=== PATIENT | female | born 1975 | race Caucasian/White ===

== ENCOUNTER 2024-10-13 09:42 | Outpatient (REF) | payer OTHER, SELFPAY ==
--- OUTSIDE RECORDS SUMMARY | 2024-10-13 10:32 | XMS_ITS | Data Portability ---
Author Organization [facility] Address [address] [place] [address] Assessment Encounter Date Assessment Date Assessment LastModified by Organization Details LastModified Time 07/01/2021 07/01/2021 [id number] [place] [id number] (SALES DIRECTOR) MDM MODERATE MUST MEET 2 OUT OF 3 ELEMENTS: PROBLEMS, DATA OR RISK ELEMENT 1: PROBLEMS ADDRESSED 1 OR MORE CHRONIC ILLNESS WITH EXACERBATION OR 2 OR MORE STABLE CHRONIC ILLNESSES OR 1 UNDIAGNOSED NEW PROBLEM OR 1 ACUTE ILLNESS W/SYMPTOMS OR 1 ACUTE COMPLICATED INJURY ELEMENT 2: DATA MUST MEET 1 OF 3 CATEGORIES CATEGORY 1: REVIEW OF PRIOR EXTERNAL NOTES, REVIEW OF RESULTS, ORDERING OF EACH TEST, ASSESSMENT REQUIRING INDEPENDENT HISTORIAN OR CATEGORY 2: INDEPENDENT INTERPRETATION OF TESTS BY ANOTHER PHYSICIAN OR SPECIALIST OR CATEGORY 3: DISCUSSION OF MGT OR TEST INTERPRETATION W/EXTERNAL PHYSICIAN OR SPECIALIST ELEMENT 3: RISK RISK OF COMPLICATIONS AND/OR MORBIDITY OR MORTALITY OF PATIENT MANAGEMENT PROVIDER MUST THOROUGHLY DOCUMENT EACH ELEMENT THAT IS COVERED Not available 07/01/2021 14:37:28 11/15/2023 11/15/2023 [id number] [place] [id number] (SALES DIRECTOR) MDM MODERATE MUST MEET 2 OUT OF 3 ELEMENTS: PROBLEMS, DATA OR RISK ELEMENT 1: PROBLEMS ADDRESSED 1 OR MORE CHRONIC ILLNESS WITH EXACERBATION OR 2 OR MORE STABLE CHRONIC ILLNESSES OR 1 UNDIAGNOSED NEW PROBLEM OR 1 ACUTE ILLNESS W/SYMPTOMS OR 1 ACUTE COMPLICATED INJURY ELEMENT 2: DATA MUST MEET 1 OF 3 CATEGORIES CATEGORY 1: REVIEW OF PRIOR EXTERNAL NOTES, REVIEW OF RESULTS, ORDERING OF EACH TEST, ASSESSMENT REQUIRING INDEPENDENT HISTORIAN OR CATEGORY 2: INDEPENDENT INTERPRETATION OF TESTS BY ANOTHER PHYSICIAN OR SPECIALIST OR CATEGORY 3: DISCUSSION OF MGT OR TEST INTERPRETATION W/EXTERNAL PHYSICIAN OR SPECIALIST ELEMENT 3: RISK RISK OF COMPLICATIONS AND/OR MORBIDITY OR MORTALITY OF PATIENT MANAGEMENT PROVIDER MUST THOROUGHLY DOCUMENT EACH ELEMENT THAT IS COVERED Not available 11/15/2023 12:13:12 08/09/2024 08/09/2024 [id number] [place] [id number] (SALES DIRECTOR) MDM MODERATE MUST MEET 2 OUT OF 3 ELEMENTS: PROBLEMS, DATA OR RISK ELEMENT 1: PROBLEMS ADDRESSED 1 OR MORE CHRONIC ILLNESS WITH EXACERBATION OR 2 OR MORE STABLE CHRONIC ILLNESSES OR 1 UNDIAGNOSED NEW PROBLEM OR 1 ACUTE ILLNESS W/SYMPTOMS OR 1 ACUTE COMPLICATED INJURY ELEMENT 2: DATA MUST MEET 1 OF 3 CATEGORIES CATEGORY 1: REVIEW OF PRIOR EXTERNAL NOTES, REVIEW OF RESULTS, ORDERING OF EACH TEST, ASSESSMENT REQUIRING INDEPENDENT HISTORIAN OR CATEGORY 2: INDEPENDENT INTERPRETATION OF TESTS BY ANOTHER PHYSICIAN OR SPECIALIST OR CATEGORY 3: DISCUSSION OF MGT OR TEST INTERPRETATION W/EXTERNAL PHYSICIAN OR SPECIALIST ELEMENT 3: RISK RISK OF COMPLICATIONS AND/OR MORBIDITY OR MORTALITY OF PATIENT MANAGEMENT PROVIDER MUST THOROUGHLY DOCUMENT EACH ELEMENT THAT IS COVERED Not available 08/09/2024 12:03:18 Plan of Treatment Reminders Order Date Submit Date Provider Last Modified By Organization Details Last Modified Time Details Appointments None recorded. Lab lipid panel, blood 2024 025 [facility], [address] [place] [address], [address], 5 12:11:24 CBC 2024 025 [facility], [address] [place] [address], [address], 5 12:11:23 CMP, serum or plasma 2024 025 [facility], [address] [place] [address], [address], 5 12:11:23 vitamin D, 25-hydroxy , total, serum 2024 025 [facility], [address] [place] [address], [address], 5 12:11:24 CMP, serum or plasma 2022 023 [facility] (Centralized Electronic Ordering - All Locations), Patient Can Go To The Location Of Their Choice, [address] 3 10:35:25 CBC w/ auto diff 2022 023 [email or web address] [facility] (Centralized Electronic Ordering - All Locations), Patient Can Go To The Location Of Their Choice, [address] 3 10:31:16 lipid panel, blood 2022 023 [facility] (Centralized Electronic Ordering - All Locations), Patient Can Go To The Location Of Their Choice, [address] 3 10:35:25 hemoglobin A1c, QN, blood 2022 023 [facility] (Centralized Electronic Ordering - All Locations), Patient Can Go To The Location Of Their Choice, [address] 3 10:35:25 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 Surgeries None recorded. Imaging XR, lumbosacra l spine, 2 or 3 view 2023 024 [facility], [address] [place], [address], 4 15:44:54 MAMMO, diagnostic , digital, unilateral - upper inner quadrant, 12 oclock left breast, notable lump 2021 022 [email or web address] 10 [facility], [address] [place], [address], 2 08:37:59 Medication Orders desonide 0.05 % topical cream 2024 025 [facility] #35453, [address] [place] [address], [id number], 5 12:02:39 cephalexin 500 mg capsule 2024 025 [facility], [address] [place], [place], [id number], 5 12:02:38 diclofenac sodium 75 mg tablet,del ayed release 2023 025 SHERRY Not available 5 11:57:14 prednisone 20 mg tablet 2022 023 [email or web address]74482, [address] [place], [place], [id number], 4 11:48:58 tizanidine 4 mg tablet [address] [facility]58, [address] [place], [place], [id number], 4 11:49:03 omeprazole 40 mg capsule,de layed release 2022 023 [facility], [place], [address], 3 10:29:34 losartan 50 mg tablet 2022 023 Pharmacy[facility], [place], [address], 5 11:53:45 ibuprofen 800 mg tablet 2022 023 [facility], [place], [address], 3 10:29:33 omeprazole 40 mg capsule,de layed release 2021 022 [facility] #55052, [address] [place], [place], [id number], 2 14:38:32 losartan 50 mg tablet 2021 022 [facility] #71875, [address] [place], [place], [id number], 5 11:53:45 bupropion HCl SR 150 mg tablet,12 hr sustained- release 2021 022 [facility] #46668, [address] [place], [place], [id number], 4 12:13:17 Patient TargetsNo targets recorded. Patient Instructions Encounter Date Encounter Id Patient Instructions Last Modified By Organization Details Last Modified Time 07/01/2021 [id number] controlling your asthma: care instructions Not available 07/01/2021 14:38:20 learning about asthma Not available 07/01/2021 14:38:19 gastroesophageal reflux disease (GERD): care instructions Not available 07/01/2021 14:38:19 high blood press ure: care instructions Not available 07/01/2021 14:38:19 learning about h igh blood pressure Not available 07/01/2021 14:38:19 insulin resistan ce: care instructions Not available 07/01/2021 14:38:20 learning about m ood disorders Not available 07/01/2021 14:38:19 03/05/2023 [id number] pulse oximetry* rtryba Not available 03/05/2023 10:29:29 11/15/2023 [id number] pulse oximetry* Not available 11/15/2023 12:15:24 controlling your asthma: care instructions Not available 11/15/2023 12:15:21 learning about asthma Not available 11/15/2023 12:15:21 Reason for Referral Teaching Young Referral for Mort on neuroma of bilateral feet bilateral phillips's neuroma Referring Physician: Marilynn Alonso, Internal Medicine, Encounter Date: 11/12/2021 Results Created Date Observation Date Name Description Value Unit Range Abnormal Flag Note LastModifiedBy Organization Detail LastModifiedTime 03/05/20 23 03/05/2023 pulse oxime try* Result 97 Not Available [facility] [address] [facility] [address], [place], [address], 03/02/2023 16:46:02 11/15/19 24 11/15/2023 pulse oxime try* Result 99 Not Available [facility] [address] [facility] [address], [place], [address], 11/12/2023 15:38:49 12/09/19 22 12/08/2021 US, breas t No observ ation record ed. [facility] [address], [place], [address], 12/08/2021 16:17:41 12/09/19 22 12/08/2021 US, duglasas t No observ ation record ed. [facility] [address], [place], [address], 12/08/2021 16:17:55 02/27/20 23 02/26/2023 imagi ng/di andreaos carlos resul t No observ ation record ed. [email or web address] [facility] [address] [facility], [place], [address], 02/26/2023 14:26:29 03/17/20 23 02/26/2023 US, norrisdd er No observ ation record ed. [facility] [address] [facility] [address], [place], [address], 11/15/2023 12:13:42 11/15/19 24 11/15/2023 XR, lumbo sacra l spine , 2 or 3 view No observ ation record ed. [email or web address] [facility] [address] [facility] [address], [place], [address], 12/08/2023 11:35:55 08/02/19 25 08/02/2024 MAMMO , scree shayna, digit al, bilat eral No observ ation record ed. [email or web address] Not Available 2024 17:52:43 Result Notes None recorded. Problems Name Problem SNOMED Code Status Onset Date Resolution Date Notes Provider Name and Address Organization Details Recorded Time Gastroes ophageal reflux disease 534364069 Active 2017 Not Available [facility] 3 19:18:14 Irritabl e bowel syndrome 00449457 Active 2017 Not Available [facility] 3 19:18:14 [facility] hyperten tammy 70360196 Completed 201708/09/2024 Darrin Shaw DO [address] [place] [address], [address], [facility] [place] 5 12:06:20 Metaboli c syndrome X 823243368 Active 2017 Not Available [facility] 3 19:18:14 Obesity 688925994 Completed 201701/09/2020 Darrin Shaw DO [address] [place], [address], [facility] [place] 0 11:30:52 Asthma 168500495 Active 2017 Not Available [facility] 3 19:18:14 Lateral epicondy litis 741112307 Active 2017 Not Available [facility] 3 19:18:14 Mass of left breast 25850314064 544472 Active 2021 Not Available [facility] 3 19:18:14 Phillips neuroma of bilatera l feet 34967279329 354901 Active 2021 Not Available [facility] 3 19:18:14 Mood disorder 65957783 Active 2022 LIZ COLLAZO [address] [place], [address], [facility] [place] 3 10:26:13 Thoracic back pain 861408500 Active 2022 LIZ COLLAZO [address] [place], [address], [facility] [place] 3 10:26:37 Depressi ve disorder 86141600 Active 2022 LIZ COLLAZO [address] [place], [address], [facility] [place] 3 10:31:40 Pain of right shoulder joint 03440420185 722214 Active 2022 LIZ COLLAZO [address] [place], [address], [facility] [place] 3 10:33:28 Lumbar spondylo sis 031148830 Active 2022 LIZ COLLAZO [address] [place] [address], [address], [facility] [place] 3 16:16:21 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 85887203 Active 2023 Darrin Shaw DO [address] [place] [address], [address], [facility] [place] 4 22:39:00 Eczema 32805442 Active 2024 Darrin Shaw DO [address] [place] [address], [address], [facility] [place] 5 12:00:01 Cellulit is of both external ears 41614383143 [address]24 Active 2024 Darrin Shaw DO [address] [place] [address], [address], [facility] [place] 5 12:00:26 Problem Notes None recorded. Procedures Surgical History None recorded. Imaging Results Imaging Date Name Status LastModified by Organiz ation Details LastModified Time 12/08/2021 US, breast completed [facility] [address] [address], [place], [address], 12/08/2021 16:17:41 12/08/2021 US, breast completed [email or web address] [facility] [address], [place], [address], 12/08/2021 16:17:55 02/26/2023 imaging/diagnos tic result completed [email or web address] [facility] [address] [facility], [place], [address], 02/26/2023 14:26:29 02/26/2023 US, bladder completed [facility] [address] [facility] [address], [place], [address], 11/15/2023 12:13:42 11/15/2023 XR, lumbosacral spine, 2 or 3 view completed [email or web address] [facility] [address] [facility] [address], [place], [address], 12/08/2023 11:35:55 08/02/2024 MAMMO, screening, digital, bilateral completed [email or web address] Information not available 08/02/2024 17:52:43 Procedure Notes None recorded. Medical Equipment None Reported. Allergies Allergen ID Allergen Name Allergen Category Reaction Reaction Severity Criticality Documentation Date Start Date Code Code System Note Provider Name and Address Organization Details Recorded Time 2214 azithromy babar medicatio n Not available Not available Not available 02/15/2018 65754 RxNorm Pema flower [facility] 8 08:34:26 221 citalopra m medicatio n Not available Not available Not available 02/15/2018 2556 RxNorm QTwav es Pema flower [facility] 8 08:34:42 3656 lisinopri l medicatio n cough Not available Not available 06/12/20192018 85363 RxNorm Darrin Shaw DO [address] [place], [address], [place] [facility] 9 11:10:14 Medications Name Sig Start Date Stop Date Status Note LastModified by Organization Details LastModified Time losartan 50 mg tablet Take 1 tablet every day by oral route for 90 days. 08/09 completed Not Available Not Available Not Available methocarbam ol 500 mg tablet Take 2 tablets 3 times a day by oral route for 7 days. 03/30 completed Not Available Not Available Not Available desonide 0.05 % topical cream APPLY SPARINGLY AND GENTLY MASSAGE TOPICALLY TO THE AFFECTED AREA TWICE DAILY active Not Available Not Available No t Available bupropion HCl SR 150 mg tablet,12 hr sustained-r elease TAKE 1 TABLET BY MOUTH TWICE DAILY 11/14 completed Not Available Not Available Not Available prednisone 10 mg tablet take 5 tabs x 4 days take 4 tabs x 1 daytake 3 tabs x 1 daytake 2 tabs x 1 day take 1 tab x 1 day 01/08 completed Not Available Not Available Not Available doxycycline hyclate 100 mg capsule Take 1 capsule twice a day by oral route for 7 days. 12/12 completed Not Available Not Available Not Available IBU 800 mg tablet Take 1 tablet 3 times a day by oral route as needed for 90 days. active Not Available Not Available No t Available tizanidine 4 mg tablet TAKE 1 TABLET BY MOUTH EVERY 6 HOURS FOR 7 DAYS NEEDED 11/14 completed Not Available Not Available Not Available meloxicam 15 mg tablet TAKE 1 TABLET BY MOUTH EVERY DAY 08/09 completed Not Available Not Available Not Available prednisone 20 mg tablet TAKE 2 TABLETS BY MOUTH EVERY DAY FOR ONE WEEK THEN TAKE 1 TABLET BY MOUTH DAILY FOR ONE WEEK 11/14 completed Not Available Not Available Not Available sulfamethox azole 800 mg-trimetho prim 160 mg tablet Take 1 tablet every 12 hours by oral route for 10 days. 03/30 completed Not Available Not Available Not Available omeprazole 40 mg capsule,del ayed release TAKE 1 CAPSULE DAILY active Not Available Not Available No t Available ciclopirox 8 % topical solution 03/05 completed Not Available Not Available Not Available oxycodone-a cetaminophe n 5 mg-325 mg tablet Take 1 tablet every 6 hours by oral route for 7 days. 03/30 completed Not Available Not Available Not Available Vitamin C 1,000 mg tablet Take 0.5 tablets every day by oral route. active Not Available Not Available No t Available lorazepam 0.5 mg tablet TAKE ONE TABLET BY MOUTH THREE TIMES A DAY NEEDED FOR 7 DAYS 11/14 completed Not Available Not Available Not Available methocarbam ol 750 mg tablet 03/30 completed Not Available Not Available Not Available cephalexin 500 mg capsule TAKE 1 CAPSULE BY MOUTH THREE TIMES DAILY FOR 7 DAYS active Not Available Not Available No t Available prednisone 50 mg tablet 07/14 completed Not Available Not Available Not Available diclofenac sodium 75 mg tablet,jared yed release TAKE 1 TABLET BY MOUTH TWICE DAILY FOR 20 DAYS 08/09 completed Not Available Not Available Not Available lisinopril 5 mg tablet TAKE 1 TABLET BY MOUTH EVERY DAY 03/05 completed Not Available Not Available Not Available mupirocin 2 % topical ointment APPLY A SMALL AMOUNT TO THE AFFECTED AREA BY TOPICAL ROUTE 3 TIMES PER DAY 01/08 completed Not Available Not Available Not Available furosemide 20 mg tablet TAKE 1 TABLET BY MOUTH EVERY DAY 03/05 completed Not Available Not Available Not Available methylpredn isolone 4 mg tablets in a dose pack Take 1 dose pk by oral route as directed for 6 days. 01/08 completed Not Available Not Available Not Available chlorhexidi ne gluconate 4 % topical liquid soak thumb for 3 minutes, 4 times per day 03/30 completed Not Available Not Available Not Available diazepam 5 mg tablet TAKE 1 TABLET BY MOUTH TWICE DAILY FOR 2 DAYS active Not Available Not Available No t Available Super B Complex 100 tablet Take 1 tablet every day by oral route. 11/12 completed Not Available Not Available Not Available Vitamin B12 500 mcg tablet Take 1 tablet every day by oral route. 03/05 completed Not Available Not Available Not Available Boostrix Tdap 2.5 Lf unit-8 mcg-5 Lf/0.5 mL intramuscul ar syringe VACCINATI ON ADMINISTE RED BY PHARMACIS T 10/25 completed Not Available Not Available Not Available pregabalin 75 mg capsule TAKE 1 CAPSULE BY MOUTH TWICE DAILY 08/09 completed Not Available Not Available Not Available activated charcoal 520mg 2 tablets twice a day 01/08 completed Not Available Not Available Not Available Fish Oil 1400mg qd 10/25 completed Not Available Not Available Not Available MCT Oil 1000mg 3 times a day 10/25 completed Not Available Not Available Not Available multivitami n daily active Not Available Not Available Not Available Hair,Skin and Nails 5000 mcg qd 10/25 completed Not Available Not Available Not Available Collagen Plus Vitamin C 2,500mg 3 times a day 01/08 completed Not Available Not Available Not Available clindamycin 1.2 % (1 % base)-benzo yl peroxide 5 % topical gel 02/15 completed Not Available Not Available Not Available Probiotic active Not Available Not Leena ilable Not Available Linzess 145 mcg capsule Take 1 capsule every day by oral route for 30 days. 10/25 completed Not Available Not Available Not Available niacinamide 500 mg capsule Take by oral route. active Not Available Not Available No t Available Natural Fiber Laxative 3 times a day 10/25 completed Not Available Not Available Not Available COVID-19 test specimen collection TEST DIRECTED TODAY 11/12 completed Not Available Not Available Not Available Vitals Date Recorded Body height Body mass index (BMI) Body weight Oxygen saturation Oxygen saturation in Arterial blood by Pulse oximetry Heart rate Systolic blood pressure Diastolic blood pressure Provider Name and Address Organization Details Last Updated DateTime 2 172.09 cm 35.5 kg/m2 173301. 07 g 96 % 96 % 93 /min 138 mm[Hg] 80 mm[Hg] Janette Bourne [facility] 2 13:56:33 Date Recorded Body weight Heart rate Oxygen saturation Oxygen saturation in Arterial blood by Pulse oximetry Systolic blood pressure Diastolic blood pressure Provider Name and Address Organization Details Last Updated DateTime 3 848185. 17 g 93 /min 97 % 97 % 152 mm[Hg] 80 mm[Hg] Kacie Alonso [facility] 3 10:21:35 Date Recorded Body weight Heart rate Oxygen saturation Oxygen saturation in Arterial blood by Pulse oximetry Systolic blood pressure Diastolic blood pressure Provider Name and Address Organization Details Last Updated DateTime 4 43100.9 5 g 75 /min 99 % 99 % 128 mm[Hg] 84 mm[Hg] Blanca Simmons [facility] 4 11:54:16 Date Recorded Body height Body mass index (BMI) Body weight Heart rate Oxygen saturation Oxygen saturation in Arterial blood by Pulse oximetry Systolic blood pressure Diastolic blood pressure Provider Name and Address Organization Details Last Updated DateTime 5 172.72 cm 27.9 kg/m2 69803.1 2 g 66 /min 98 % 98 % 124 mm[Hg] 70 mm[Hg] Ananth Charles [facility] 11:41:30 Social History Question Answer Notes LastModified by Organizat ion Details LastModified Time Tobacco Smoking Status Former Smoker Not Available [facility] 04/16/2020 03:36:23 What Was The Date Of Your Most Recent Tobacco Screening? 08/09/2024 [email or web address] Information not available 08/09/2024 Sex: Unknown Functional Status None recorded. Mental Status None recorded. Family History Nothing Reported. Medical History No medical history recorded. Gynecological HistoryNo gynecological history recorded. Obstetrics History GPAL:G 0 P 0 0 0 0 Immunizations Vaccine Type Date Status Note Provider Nam e and Address Organization Details Recorded Time COVID-19 vaccine, vector-nr, rS-Ad26, PF, 0.5 mL 08/22/2020 completed Kacie Gencarelle [facility] 03/05/2023 10:06:55 COVID-19, mRNA, LNP-S, PF, 30 mcg/0.3 mL dose 06/25/2021 completed Kacie Gencarelle [facility] 03/05/2023 10:06:55 Tdap 03/11/2020 completed Not Available [facility] 09/28/2022 19:18:15 Past Encounters Encounter ID Performer Location Encounter Start Date Encounter Closed Date Diagnosis/Indication Diagnosis SNOMED-CT Code Diagnosis ICD10 Code Diagnosis Note [id number] Darrin Shaw [facility] [address] [facility], [place] [address] 02/15/2018 11:57:32 02/15/2018 12:45:49 Acute low back pain 397750414 M54.5 Asthma 818290975 J45.90 9 Paronychia of finger 444 630638 L03.019 [id number] Darrin Shaw [facility] [address] [facility],[place] [address] 03/02/2018 10:44:44 03/02/2018 12:04:25 Stress 70710013 Z73.3 will start wellbutrin and prn lorazep Essential hypertension 26921240 I10 still ok overall will cont [id number] Darrin Shaw [facility] [address] [facility] [address], [place] [address] 03/30/2018 14:04:47 04/01/2018 16:38:31 Essential hypertension 42168536 I10 still ok overall will cont Gastroesop hageal reflux disease 765172275 K21.9 [id number] Darrin Cottonzach [facility] [address] [facility] [address], [place] [address] 05/31/2018 14:01:08 06/03/2018 09:07:36 Essential hypertension 98837128 I10 still ok overall will cont Lateral epicondylitis 20 3626386 M77.12 will need another cortisone inj will refer Asthma 749464625 J45.90 9 [id number] Darrin Cottonzach [facility] [address] [facility],[place] [address] 11/23/2018 15:35:48 11/23/2018 16:06:09 Gastroesophageal reflux disease 815456630 K21.9 Essential hypertension 52333338 I10 has had hbp in past but bp was good so it was stopped now stressed with divorce will restart Obesity 042589176 E66.9 Metabolic syndrome X 237 911673 E88.81 Folliculitis 00184603 L7 3.9 [id number] [facility] [address] [facility], [place] [address] 12/12/2018 15:34:57 12/12/2018 16:08:59 Metabolic syndrome X 493981970 E88.81 stable as a1c is 5 is on keto diet which will further help Essential hypertension 43334251 I10 still ok overall will cont cholestero l is dececnt even during keto diet Asthma [id number] J45.90 9 stable [id number] [facility] [address] [facility] [address], [place] [address] 07/14/2019 14:45:18 07/14/2019 15:22:55 Asthma [id number] J45.909 stable Essential hypertension 74121247 I10 Slightly elevated with losartan, will recheck next visit Metabolic syndrome X 237 249268 E88.81 stable as a1c is 5 is on keto diet which will further help Obesity 085896051 E66.9 Has had a hard time losing weight with increased exercise and keto diet Edema of l ower extremity 166157897 R60.0 will start wearing support hose Mood disorder 90734296 F 40 taking bupropion but keeping up at night will change to afternoon instead of night dose [id number] Darrin Shaw [facility] [address] [facility], [place] [facility] [place] [address] 01/09/2020 10:56:00 01/09/2020 12:01:18 Asthma 189208110 J45.909 stable Gastroesop hageal reflux disease 137959413 K21.9 Well controlled wit omep Lateral epicondylitis 20 0461156 M77.12 Is due for another injection in Jan Hepatitis C screening 41 7734774 Z11.59 Will check Irritable bowel syndrome 56902143 K58.9 Has been much worse lately Essential hypertension 81597770 I10 Slightly elevated with losartan, will recheck next visit [id number] Darrin Shaw [facility] [address] [facility],[employer] [address] 10/25/2020 11:19:09 10/25/2020 14:50:58 Essential hypertension 33106955 I10 currently stable Gastroesop hageal reflux disease 717632275 K21.9 Well controlled wit omep Asthma 700734119 J45.90 9 stable mot using inhalers even in the allergy season [id number] Darrin Shaw [facility] [address] [facility], [place] [facility] [place] [address] 07/01/2021 13:34:07 07/01/2021 14:39:55 Mood disorder 37029080 F39 taking bupropion but keeping up at night will change to afternoon instead of night dose Metabolic syndrome X 237 531867 E88.81 stable as a1c is 5 is on keto diet which will further help Essential hypertension 01023286 I10 currently stable but stops the lisinopril due to cough will change to losartan Asthma 403814380 J45.90 9 stable mot using inhalers even in the allergy season Gastroesop hageal reflux disease 954124910 K21.9 Well controlled wit omep [id number] Darrin Shaw DO [facility] Internal Medicine [address] [facility],[place] [address] 11/12/2021 13:47:06 11/12/2021 15:11:48 Mass of left breast 9546243979 6471685 N63.22 new breast lump about 4 cm in widthwill fu with mammogram, last recorded was 2018 [facility] candelario of bilateral feet [id number] 2140363 G57.63 will fu with referral [id number] Darrin Shaw DO [facility] [address] [facility],[place] [address] 03/05/2023 10:05:18 03/05/2023 10:43:39 Asthma 805086660 J45.20 stable Gastroesop hageal reflux disease 287575613 K21.9 stable Mass of left breast 1224 949737 5650207 N63.22 stable Phillips monae candelario of bilateral feet 1464187876 0552262 G57.63 stable Mood disorder 12099141 F 30.10 stable Thoracic back pain 67577 8004 M54.6 will start on pred and tizanidine for discomfort will let me know if she wants to see ortho Depressive disorder 3548 9007 F32.A stable Essential hypertension 19425423 I10 needs refill Pain of ri ght shoulder joint 5580081964 9962033 M25.511 given predif she wants an ortho referral she will call us back [id number] Darrin Shaw DO [facility] [address] [facility],[place] [address] 11/15/2023 11:45:02 11/15/2023 14:43:31 Asthma 984888356 J45.909 stable mot using inhalers even in the allergy season Depression screening 171 785976 Z13.31 PHQ9 NEGATIVE she has weaned off the bupropion Lumbar spondylosis 10490 0009 M47.896 we will start her on xray first and then get mri [id number] DO [facility] [address] [facility],[place] [address] 08/09/2024 11:26:05 08/09/2024 13:17:16 Eczema 25024704 L30.9 will use otc hydrocort with q tip Cellulitis of both external ears 2430210178 295505 H60.13 Asthma 630734969 J45.90 9 stable mot using inhalers even in the allergy season Essential hypertension 79020014 I10 now off all her meds and bp is great has lost 70 lbs and feels good Health Concerns Section Related Observation LastModified by Organization Detai ls LastModified Time None Recorded Concern Status LastModified by Organization Details LastModified Time None Recorded Advance Directives Directive None Recorded Payers Encounter Date Sequence Insurance Name Policy Number Policy Jeffrey Covered Member ID Jeffrey Member ID Guarantor Name 07/01/2021 1 [facility] [id number] 01 Olena Fishman [id number] Olena Fishman 11/12/[address] [place] [address] [id number] Olena Fishman [id number] Olena Fishman 03/05/2023 1 [facility] [id number] 01 Olena Fishman [id number] Olena Fishman 11/15/[address] [place] [address] [id number] Olena Fishman [id number] Olena Fishman 08/09/[address] [place] [address] [id number] Olena Fishman [id number] Olena Fishman Notes Date Note Type Note Provider Name a nd Address Organization Details Recorded Time 07/01/2021 text/html Hypertension F/UReported bypatient.Medicatio ns:taking medications as directed; no side effects from medication Lifestyle:regular exercise; limiting/avoiding salt; compliant with low salt diet Associated Symptoms:no dizziness; no lightheadedness; no chest pain; no shortness of breath; no palpitations; no edema; no calf pain with exertion; no headacheNotes:relat es the bp lisinopril causing cough patient is evaluated via tele/video assessment per patient consent during current pandemic states she is feeling ok had covid last mo and had symptoms for 4-5 days Darrin Shaw DO [address] [place], [address], [facility], [place], [facility] 07/01/2021 14:39:36 11/12/2021 text/html c/o breast lump, left breast new left breast mass at 12 oclock noticed earlier this week, pain with palpation hx of benign soft tissue changes on prior mammogram however, breast lump today is dense, nonfluctuant and about 4 cm in widthpainful to palpation will fu with repeat mammogram to check the mass to see if it continues to be benignno skin changes, no dimpling, no discharge from the nipple no inversion of the nipple bilateral pain at the sole of both feet, given description and pin point tenderness (feels like she is stepping on a rock) it probable dania's neuromawill set up with podiatrydoes report new left hip pain but admits she has shift her gait to compensate for the pain in her feet, may be causing the pain, will start with feet first and if hip pain continues after resolution will fu with XR of her hip and separate work up fu after mammo LIZ COLLAZO [address] [place], [address], [facility] [place], [facility] 11/12/2021 14:27:51 03/05/2023 text/html medication fu the patient has thoracic back pain into the lumbar backthe patient radiation into the tops of the back of her legs the patient reports that she also has right shoulder painreduced ROM, with overhead motiondeclines ortho refferal but agrees to pred for both back and spine needs refills no other questions LIZ COLLAZO [address] [place], [address], [facility], [place], [facility] 03/05/2023 10:34:04 11/15/2023 text/html has hx of back p ain and the lumbar area she has known deg ds and this has considerably worsened over the last 3 mo she has lost 37 lbs and this s=did not helpshe is notably getting worse than better Darrin Shaw DO [address] [place], [address], [facility] [place], [facility] 11/15/2023 12:18:30 08/09/2024 text/html here for chk of her ears are painful and hurting relates began 2 weeks agostill struggling with he r back relates seeing specialist who wants to cauterize a nerve if it gets worse Darrin Shaw, DO [address] [facility], [place], [address], [place] [facility] 08/09/2024 12:06:26 OBGyn Episode No OBEpisode recorded.
[2024-10-13 13:25] LABS: MANUAL DIFF FLAG NO
[2024-10-13 13:47] LABS: Basophils Absolute Auto 0.1 X10*3/uL (0.0-0.2); Basophils Percent Auto 0.7 % (0-2); Eosinophils Absolute Auto 0.1 X10*3/uL (0.0-0.4); Eosinophils Percent Auto 1.2 % (0-4); Hematocrit 45.7 % (37.0-47.0); Hemoglobin 15.3 g/dl (12.0-16.0); Imm Gran Abs Auto 0.02 X10*3/uL (0.00-0.03); Imm Gran Pct Auto 0.3 % (0.0-0.4); Lymphocytes Absolute Auto 2.1 X10*3/uL (1.2-4.9); Mean Corpuscular HGB Conc 33.5 g/dl (31.0-35.0); Mean Corpuscular Hemoglobin 31.3 pg (27.0-33.0); Mean Corpuscular Volume 93.5 fL (80.0-98.0); Mean Platelet Volume 11.3 fL (9.4-12.3); Monocytes Absolute Auto 0.5 X10*3/uL (0.1-1.2); Monocytes Percent Auto 7.1 % (2-11); Neutrophils Absolute Auto 4.7 x10*3/uL (2.0-8.3); Neutrophils Percent Auto 62.7 % (45-73); Platelet Count 304 X10*3/uL (160-400); Red Blood Count 4.89 X10*6/uL (4.20-5.50); Red Cell Distribution Width 11.8 % (11.0-16.0); White Blood Count 7.5 X10*3/uL (4.8-10.8)
[2024-10-13 14:10] LABS: Alanine Aminotransferase 20 U/L (0-31); Albumin Level 4.7 g/dL (3.5-5.0); Alkaline Phosphatase 50 U/L (39-117); Anion Gap 13 (12-20); Aspartate Amino Transferase 25 U/L (5-31); Bilirubin Total 0.5 mg/dL (0.0-1.0); Blood Urea Nitrogen 19 mg/dL (9-16); Calcium 9.7 mg/dL (8.4-10.2); Carbon Dioxide 28 mmol/L (22-29); Chloride 102 mmol/L (96-108); Cholesterol 231 mg/dL (<200); Estimated Glomerular Filt Rate > 60; Glucose Random 82 mg/dL (60-115); HDL Cholesterol 53 mg/dL (>40); LDL Cholesterol Calculated 157 mg/dL (<100); Potassium 3.8 mmol/L (3.3-5.1); Sodium 139 mmol/L (135-145); Total Protein 7.5 g/dL (6.5-8.0); Triglycerides 107 mg/dL (<150); Vitamin D 25-OH Total > 154.2 ng/mL (>30)
== END 2024-10-13 09:43 | disposition home or self-care (01) ==
LOC: HO.MANLDS 09:42
PROVIDERS: Visit Provider Internal Medicine
DX: I10 Essential (primary) hypertension (principal)
CPT/HCPCS: 36415; 80053; 80061; 82306; 85025